=== PATIENT | male | born 1970 | race Caucasian/White ===

== ENCOUNTER 2016-11-21 14:53 | Emergency (ER) | payer OTHER ==
[~2016-11-21] VITALS: Ht 182.8 cm; Wt 88.5 kg
[~2016-11-21 14:53] MED LIST: AMOXICILLIN500 MG PO; ARTHROTEC50 MG PO; ATARAX25 MG PO; BACTRIM DS 8001 TA1 PO; CLEOCIN150 MG PO; CYCLOBENZAPRINE10 MG PO; DARVOCET N 1001 TAB PO; FLEXERIL5 MG PO; MELOXICAM15 MG PO; MOTRIN800 MG PO; NAPROSYN500 MG PO; NKHM; NORCO 325 MG-51 TAB PO; OMEPRAZOLE D/R20 MG PO; PREDNISONE10 MG PO; PRILOSEC40 M1 PO; VICODIN 5-3001 EACH PO; VICODIN ES 7501 TAB PO
[2016-11-21] MEDS ORDERED: Motrin,Rufen800 MG PO (16:04)
[2016-11-21] MEDS ORDERED: ULTRAM50 MG PO (16:04)
== END 2016-11-21 16:17 | disposition home or self-care (01) ==
LOC: ED 14:53
DX: M25.571 Pain in right ankle and joints of right foot (principal); F17.200 Nicotine dependence, unspecified, uncomplicated; R60.0 Localized edema; Z79.899 Other long term (current) drug therapy

== ENCOUNTER 2018-02-09 13:09 | Emergency (ER) | payer OTHER ==
[~2018-02-09] VITALS: Ht 182.8 cm; Wt 93.0 kg
[~2018-02-09 13:09] MED LIST changes: +Motrin,Rufen800 MG PO; +ULTRAM50 MG PO
[2018-02-09] MEDS ORDERED: Motrin,Rufen800 MG PO (14:24)
== END 2018-02-09 14:27 | disposition home or self-care (01) ==
LOC: ED 13:09
DX: S92.511A Displaced fracture of proximal phalanx of right lesser toe(s), initial encounter for closed fracture (principal); R06.00 Dyspnea, unspecified; K21.9 Gastro-esophageal reflux disease without esophagitis; F17.200 Nicotine dependence, unspecified, uncomplicated; X58.XXXA Exposure to other specified factors, initial encounter; Y93.89 Activity, other specified; Y92.89 Other specified places as the place of occurrence of the external cause; Y99.9 Unspecified external cause status

== ENCOUNTER 2019-07-23 09:16 | Emergency (ER) | payer OTHER ==
[~2019-07-23] VITALS: Ht 182.8 cm; Wt 95.3 kg
[2019-07-23] MEDS ORDERED: IBU800 MG PO (11:12)
== END 2019-07-23 11:16 | disposition home or self-care (01) ==
LOC: ED 09:16
DX: S59.901A Unspecified injury of right elbow, initial encounter (principal); Z79.899 Other long term (current) drug therapy; W22.09XA Striking against other stationary object, initial encounter; Y93.89 Activity, other specified; Y92.69 Other specified industrial and construction area as the place of occurrence of the external cause; Y99.8 Other external cause status

== ENCOUNTER 2020-03-17 12:30 | Emergency (ER) | payer OTHER ==
[~2020-03-17] VITALS: Ht 182.8 cm; Wt 95.3 kg
[~2020-03-17 12:30] MED LIST changes: +IBU800 MG PO
[2020-03-17] MEDS ORDERED: PREDNISONE20 M1 PO (13:36)
[2020-03-17] MEDS ORDERED: KENALOG 0.1%80 GM T (13:36)
== END 2020-03-17 13:14 | disposition home or self-care (01) ==
LOC: ED 12:30
DX: L30.9 Dermatitis, unspecified (principal); Z79.899 Other long term (current) drug therapy

== ENCOUNTER 2020-03-22 00:43 | Emergency (ER) | payer OTHER ==
[~2020-03-22] VITALS: Ht 182.8 cm; Wt 95.3 kg
[~2020-03-22 00:43] MED LIST changes: +KENALOG 0.1%80 GM T; +PREDNISONE20 M1 PO
[2020-03-22] MEDS ORDERED: Motrin,Rufen800 MG PO (01:59)
== END 2020-03-22 02:25 | disposition home or self-care (01) ==
LOC: ED 00:43
DX: S93.401A Sprain of unspecified ligament of right ankle, initial encounter (principal); S93.402A Sprain of unspecified ligament of left ankle, initial encounter; M25.561 Pain in right knee; M25.562 Pain in left knee; W01.0XXA Fall on same level from slipping, tripping and stumbling without subsequent striking against object, initial encounter; Y93.01 Activity, walking, marching and hiking; Y92.091 Bathroom in other non-institutional residence as the place of occurrence of the external cause; Y99.8 Other external cause status

== ENCOUNTER 2021-01-02 06:59 | Emergency (ER) | payer OTHER ==
[~2021-01-02] VITALS: Wt 95.3 kg
[2021-01-02 07:59] LABS: HEMATOCRIT 44.4 % (42.0-52.0); MEAN CELL VOLUME 93.5 fl (80.0-94.0); MEAN CORPUSCULAR HGB 31.6 pg (27.0-31.0); MEAN CORPUSCULAR HGB CONC 33.8 g/dl (33.0-37.0); MEAN PLATELET VOLUME 12.1 fl (9.6-12.3); PLATELET COUNT AUTOMATED 227 10*3/uL (130-400); RED BLOOD COUNT 4.75 10*6/uL (4.50-5.90); RED CELL DISTRI WIDTH 11.9 % (0-14.5); WHITE BLOOD COUNT 10.3 10*3/uL (4.8-10.8)
[2021-01-02 08:05] LABS: ACT PARTIAL THROMBO TIME 28.2 SECONDS (20.0-32.1); INTERNATIONAL NORM RATIO 0.9 (2.0-3.5)
[2021-01-02 08:13] LABS: ATYPICAL LYMPHS 1 % (0-0); BASOPHILS 2 % (0-1); TOTAL CELLS COUNTED 100 #CELLS
[2021-01-02 08:14] LABS: PLATELET SUFFICIENCY NORMAL (NORMAL)
[2021-01-02 08:17] LABS: ALBUMIN 3.8 gm/dl (3.1-4.5); ALKALINE PHOSPHATASE 90 U/L (45-117); BUN 11 mg/dl (7-24); CHLORIDE 103 mmol/L (98-107); CREATININE 0.95 mg/dL (0.70-1.30); POTASSIUM 3.4 mmol/L (3.5-5.1); SGOT/AST 49 IU/L (3-35); SGPT/ALT 36 U/L (12-78); SODIUM 136 mmol/L (136-145)
[2021-01-02 08:18] LABS: ETHYL ALCOHOL < 3.0 mg/dl (<3)
== END 2021-01-02 08:45 | disposition home or self-care (01) ==
LOC: ED 06:59
PROVIDERS: Emergency Medicine
DX: M51.36 Other intervertebral disc degeneration, lumbar region (principal); M79.605 Pain in left leg; M79.604 Pain in right leg; R20.2 Paresthesia of skin; R06.02 Shortness of breath; K21.9 Gastro-esophageal reflux disease without esophagitis; F17.210 Nicotine dependence, cigarettes, uncomplicated; Z79.899 Other long term (current) drug therapy

== ENCOUNTER 2021-11-10 12:03 | Emergency (ER) | payer OTHER ==
[~2021-11-10] VITALS: Wt 95.3 kg
[2021-11-10] MEDS ORDERED: SEPTDS PO (12:37)
[2021-11-10] MEDS ORDERED: CEPHALEXIN500 M1 PO (12:37)
== END 2021-11-10 12:56 | disposition home or self-care (01) ==
LOC: ED 12:03
DX: N60.02 Solitary cyst of left breast (principal)

== ENCOUNTER 2021-11-20 05:59 | Emergency (ER) | payer OTHER ==
[~2021-11-20 05:59] MED LIST changes: +CEPHALEXIN500 M1 PO; +SEPTDS PO
== END 2021-11-20 07:48 | disposition home or self-care (01) ==
LOC: ED 05:59
DX: S66.912A Strain of unspecified muscle, fascia and tendon at wrist and hand level, left hand, initial encounter (principal); S60.222A Contusion of left hand, initial encounter; K21.9 Gastro-esophageal reflux disease without esophagitis; W18.39XA Other fall on same level, initial encounter; Y93.89 Activity, other specified; Y92.89 Other specified places as the place of occurrence of the external cause; Y99.8 Other external cause status

== ENCOUNTER 2022-07-02 21:43 | Emergency (ER) | payer OTHER ==
[~2022-07-02] VITALS: Ht 182.8 cm; Wt 94.3 kg
[2022-07-02] MEDS ORDERED: NAPROXEN250 MG PO (22:16)
[2022-07-02] MEDS ORDERED: HYDROCODONE-AC1 EAC1 PO (22:26)
== END 2022-07-02 22:51 | disposition home or self-care (01) ==
LOC: ED 21:43
DX: M25.562 Pain in left knee (principal); W18.30XA Fall on same level, unspecified, initial encounter; Y93.01 Activity, walking, marching and hiking; Y92.098 Other place in other non-institutional residence as the place of occurrence of the external cause; Y99.9 Unspecified external cause status

== ENCOUNTER → 2022-07-07 | Outpatient (CLI) | payer OTHER ==
[~2022-07-07] MED LIST changes: +HYDROCODONE-AC1 EAC1 PO; +NAPROXEN250 MG PO
== END ==
LOC: CT 12:36
PROVIDERS: ATTEND Orthopaedic Surgery
DX: S82.142A Displaced bicondylar fracture of left tibia, initial encounter for closed fracture (principal); M79.89 Other specified soft tissue disorders; M71.22 Synovial cyst of popliteal space [Baker], left knee; X58.XXXA Exposure to other specified factors, initial encounter; Y93.89 Activity, other specified; Y92.89 Other specified places as the place of occurrence of the external cause; Y99.8 Other external cause status

== ENCOUNTER → 2022-07-19 | Outpatient (CLI) | payer OTHER | END | disposition home or self-care (01) | LOC: ORTHO 01:19 | PROVIDERS: ATTEND Orthopaedic Surgery | DX: S82.125D Nondisplaced fracture of lateral condyle of left tibia, subsequent encounter for closed fracture with routine healing (principal); X58.XXXD Exposure to other specified factors, subsequent encounter ==

== ENCOUNTER → 2022-07-26 | Outpatient (CLI) | payer OTHER | END | disposition home or self-care (01) | LOC: ORTHO 01:01 | PROVIDERS: ATTEND Orthopaedic Surgery | DX: S82.125D Nondisplaced fracture of lateral condyle of left tibia, subsequent encounter for closed fracture with routine healing (principal); X58.XXXD Exposure to other specified factors, subsequent encounter ==

== ENCOUNTER → 2022-08-16 | Outpatient (CLI) | payer OTHER | END | disposition home or self-care (01) | LOC: ORTHO 03:22 | PROVIDERS: ATTEND Orthopaedic Surgery | DX: S82.125D Nondisplaced fracture of lateral condyle of left tibia, subsequent encounter for closed fracture with routine healing (principal); X58.XXXD Exposure to other specified factors, subsequent encounter ==

== ENCOUNTER → 2022-08-23 | Outpatient (CLI) | payer OTHER | END | disposition home or self-care (01) | LOC: RAD 04:28 | PROVIDERS: ATTEND Orthopaedic Surgery | DX: S82.125D Nondisplaced fracture of lateral condyle of left tibia, subsequent encounter for closed fracture with routine healing (principal); X58.XXXD Exposure to other specified factors, subsequent encounter ==

== ENCOUNTER → 2022-10-11 | Outpatient (CLI) | payer OTHER | END | disposition home or self-care (01) | LOC: ORTHO 01:51 | PROVIDERS: ATTEND Orthopaedic Surgery | DX: S82.125D Nondisplaced fracture of lateral condyle of left tibia, subsequent encounter for closed fracture with routine healing (principal); X58.XXXD Exposure to other specified factors, subsequent encounter ==